=== PATIENT | female | born 1995 | race Hispanic/Latino ===

== ENCOUNTER 2018-01-29 11:46 | Emergency (ER) | payer BC ==
[2018-01-29 13:31] LABS: Urine Blood 3+ (NEG); Urine Glucose NEGATIVE (NEG); Urine Protein NEGATIVE (NEG); Urine Specific Gravity 1.025 (1.005-1.030)
--- NOTE | 2018-01-29 13:38 | ER ---
Nurse's Notes [facility] Name: Nenita Causey Age: 22 yrs Sex: Female : 1995 Arrival Date: 01/29/2018 Time: 11:51 Bed 11 Private MD: Diagnosis: Cellulitis of right upper limb-Forearm;Irritant contact dermatitis Presentation: 01/29 12:05 Presenting complaint: Patient states: i was doing yard work, January 17, i noticed small hj rash and started on the R arm and now its starting to spread all over my body; i applied Caladryl lotion to affected sites;. Transition of care: patient was not received from another setting of care. Onset of symptoms was January 29, 2018. Initial Sepsis Screen: Does the patient meet any 2 criteria? No. Patient's initial sepsis screen is negative. Does the patient have a suspected source of infection? No. Patient's initial sepsis screen is negative. Care prior to arrival: None. 12:05 Method Of Arrival: Ambulatory 12:05 Acuity: RACH 4 hj Triage Assessment: 12:07 General: Appears in no apparent distress. uncomfortable, Behavior is calm, cooperative, hj appropriate for age. Pain: Complains of pain in right arm Pain currently is 3 out of 10 on a pain scale. 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 - Social history:: Smoking status: Patient/guardian denies using tobacco, Patient/guardian denies using alcohol. Screenin:09 Abuse screen: Denies threats or abuse. Denies injuries from another. Nutritional hj screening: No deficits noted. Tuberculosis screening: No symptoms or risk factors identified. Fall Risk None identified. Assessment: 13:00 General: Appears in no apparent distress. Behavior is calm, cooperative. Pain: iw Complains of pain in right arm. Neuro: Level of Consciousness is awake, alert, obeys commands, Oriented to person, place, time. Respiratory: Respiratory effort is even, unlabored, Respiratory pattern is regular. Derm: Rash noted that is draining clear fluid, itchy, red, on palmar aspect of right forearm. Musculoskeletal: Range of motion: intact in all extremities. Vital Signs: 12:07 BP 111 / 73; Pulse 86; Resp 18; Temp 98.1(TE); Pulse Ox 99% on R/A; Weight 108.86 kg; hj Height 5 ft. 3 in. (160.02 cm); Pain 3/10; 12:07 Body Mass Index 42.51 (108.86 kg, 160.02 cm) ED Course: 11:51 Patient arrived in ED. mr 12:06 Triage completed. hj 12:07 Arm band placed on left wrist. hj 12:10 Patient has correct armband on for positive identification. Bed in low position. hj 12:11 Hector Jansen PA is PHCP. cp 12:11 Phan Neri MD is Attending Physician. cp 12:24 Roxy Rios, RN is Primary Nurse. iw 13:32 No provider procedures requiring assistance completed. Patient did not have IV access iw during this emergency room visit. Administered Medications: No medications were administered Outcome: 13:38 Discharge ordered by MD. cp 13:45 Discharged to home ambulatory, with family. iw 13:45 Condition: good 13:45 Discharge instructions given to patient, family, Instructed on discharge instructions, follow up and referral plans. medication usage, Demonstrated understanding of instructions, follow-up care, medications, Prescriptions given X 2. 13:46 Patient left the ED. la1 Signatures: Sharonda Hassan Roxy Rios, RONALD CARDENAS Pedrito Armstrong RN RN la1 Andrea Child RN RN Hector Jansen PA PA cp Corrections: (The following items were deleted from the chart) 12:09 12:07 Pulse 86bpm; Resp 18bpm; Pulse Ox 99% RA; Temp 98.1F Temporal; 108.86 kg; Height hj 5 ft. 3 in.; BMI: 42.5; Pain 3/10; hj
--- NOTE | 2018-01-29 13:39 | EDPHYS ---
Physician Documentation [facility] Name: Nenita Causey Age: 22 yrs Sex: Female : 1995 Arrival Date: 01/29/2018 Time: 11:51 Bed 11 Private MD: ED Physician Phan Neri HPI: 01/29 12:15 This 22 yrs old Female presents to ER via Ambulatory with complaints of Poison cp miriam. 12:15 Onset: The symptoms/episode began/occurred 01-17-2018, started after performing yard cp work. 12:15 Associated signs and symptoms: Pertinent positives: swelling, erythema, drainage from cp right forearm, Pertinent negatives: cough, fever, wheezing. Patient reports she has been using OTC calamine lotion w/o resolution. 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 - Social history:: Smoking status: Patient/guardian denies using tobacco, Patient/guardian denies using alcohol. ROS: 12:20 Constitutional: Negative for body aches, chills, fever, poor PO intake. cp 12:20 Eyes: Negative for injury, pain, redness, and discharge. cp 12:20 ENT: Negative for drainage from ear(s), ear pain, sore throat, difficulty swallowing, difficulty handling secretions. 12:20 Cardiovascular: Negative for chest pain, palpitations. 12:20 Respiratory: Negative for cough, shortness of breath, wheezing. 12:20 Abdomen/GI: Negative for abdominal pain, nausea, vomiting, and diarrhea. 12:20 Skin: Positive for cellulitis, rash, of the right forearm, diffusely. 12:20 All other systems are negative. Exam: 12:25 Constitutional: The patient appears in no acute distress, alert, awake, non-toxic, well cp developed, well nourished. 12:25 Head/Face: Normocephalic, atraumatic. cp 12:25 Eyes: Periorbital structures: appear normal, Conjunctiva: normal, no exudate, no injection, Sclera: no appreciated abnormality, Lids and lashes: appear normal, bilaterally. 12:25 ENT: External ear(s): are unremarkable, Nose: is normal, Mouth: Lips: moist, Oral mucosa: pink and intact, moist, Posterior pharynx: is normal, airway is patent, no erythema, no exudate. 12:25 Neck: ROM/movement: is normal, is supple, without pain, no range of motions limitations, no nuchal rigidity. 12:25 Chest/axilla: Palpation: is normal, no crepitus, no tenderness. 12:25 Cardiovascular: Rate: normal, Rhythm: regular. 12:25 Respiratory: the patient does not display signs of respiratory distress, Respirations: normal, no use of accessory muscles, no retractions, no splinting, no tachypnea, labored breathing, is not present, Breath sounds: are clear throughout, no decreased breath sounds, no stridor, no wheezing. 12:25 Abdomen/GI: Exam negative for discomfort, distension, guarding, Inspection: abdomen appears normal. 12:25 Skin: cellulitis, that is moderate, irregular, on the right forearm, noted serosanguinous drainage for excoriated skin wounds, skin warmth and erythema, consistent with contact dermatitis, and is diffusely located. Vital Signs: 12:07 BP 111 / 73; Pulse 86; Resp 18; Temp 98.1(TE); Pulse Ox 99% on R/A; Weight 108.86 kg; hj Height 5 ft. 3 in. (160.02 cm); Pain 3/10; 12:07 Body Mass Index 42.51 (108.86 kg, 160.02 cm) hj MDM: 12:23 Patient medically screened. cp 12:30 Differential diagnosis: cellulitis, abscess, contact dermatitis, eczema. cp 13:37 Data reviewed: vital signs, nurses notes, and as a result, I will discharge patient. cp 13:37 Counseling: I had a detailed discussion with the patient and/or guardian regarding: the cp historical points, exam findings, and any diagnostic results supporting the discharge/admit diagnosis, the need for outpatient follow up, a family practitioner, to return to the emergency department if symptoms worsen or persist or if there are any questions or concerns that arise at home. ED course: VSS. Discussed wound care. Recommend OTC oatmeal bar soap. Will discharge to home for continued monitoring. 01/29 13:24 Order name: Urine Dipstick--Ancillary (enter results); Complete Time: 13:37 iw 01/29 13:37 Interpretation: Normal except: UBLD 3+. cp 01/29 13:24 Order name: Urine --Ancillary (enter results); Complete Time: 13:37 iw 01/29 12:11 Order name: Urine Dipstick-Ancillary (obtain specimen); Complete Time: 13:23 cp 01/29 12:11 Order name: Urine Test (obtain specimen); Complete Time: 13:23 cp Administered Medications: No medications were administered Disposition: 16:52 Co-signature as Attending Physician, Phan Neri MD. rn Disposition: 01/29/18 13:38 Discharged to Home. Impression: Cellulitis of right upper limb - Forearm, Irritant contact dermatitis. - Condition is Stable. - Discharge Instructions: Cellulitis, Poison Miriam. - Prescriptions for Clindamycin HCl 300 mg Oral Capsule - take 1 capsule by ORAL route every 6 hours for 10 days; 40 capsule. Triamcinolone Acetonide 0.1 % Topical Ointment - apply 1 application by TOPICAL route every 12 hours As needed apply to areas of irritation except right forearm; 1 tube. - Medication Reconciliation Form, Thank You Letter, Antibiotic Education, Prescription Opioid Use form. - Follow up: Private Physician; When: 2 - 3 days; Reason: Wound Recheck. - Problem is new. - Symptoms are unchanged. Signatures: Dispatcher [employer] EDPhan Parry MD MD rn Attema, Lee, RN RN la1 Andrea Child RN RN hj Page, Corey, PA PA cp Corrections: (The following items were deleted from the chart) 13:40 13:38 01/29/2018 13:38 Discharged to Home. Impression: Cellulitis of right upper limb. cp Condition is Stable. Forms are Medication Reconciliation Form, Thank You Letter, Antibiotic Education, Prescription Opioid Use. Follow up: Private Physician; When: 2 - 3 days; Reason: Wound Recheck. Problem is new. Symptoms are unchanged. cp 13:46 13:40 01/29/2018 13:38 Discharged to Home. Impression: Cellulitis of right upper limb - la1 Forearm; Irritant contact dermatitis. Condition is Stable. Discharge Instructions: Cellulitis. Prescriptions for Clindamycin HCl 300 mg Oral Capsule - take 1 capsule by ORAL route every 6 hours for 10 days; 40 capsule, Triamcinolone Acetonide 0.1 % Topical Ointment - apply 1 application by TOPICAL route every 12 hours As needed apply to areas of irritation except right forearm; 1 tube. and Forms are Medication Reconciliation Form, Thank You Letter, Antibiotic Education, Prescription Opioid Use. Follow up: Private Physician; When: 2 - 3 days; Reason: Wound Recheck. Problem is new. Symptoms are unchanged. cp
== END 2018-01-29 13:46 | disposition home or self-care (01) ==
LOC: ER 11:46
DX: L03.113 Cellulitis of right upper limb (principal); Z88.0 Allergy status to penicillin
CPT/HCPCS: 81003; 81025; 99282

== ENCOUNTER 2021-09-05 16:47 | Emergency (ER) | payer BC ==
--- OUTSIDE RECORDS SUMMARY | 2021-09-05 16:51 | XMS REPORT | Continuity of Care Document ---
:1995 Author Organization [facility] t Address [address] [place] [address] Care Team Providers Name Role Phone Tony Kilaptrick DO Attending Clinician Lab, Fam Pob I Attending Clinician Unavailable Tia Finn PA-C Attending Clinician TIA FINN Attending Clinician Unavailable Yair Talbot MD Attending Clinician Katelyn EM Attending Clinician ANENE Attending Clinician Unavailable Doctor Unassigned, Name Attending Clinician Unavailable Payers Payer Name Policy Type Policy Number Effective Date Expiration Date S ource Problems Condition Condition Condition Status Onset Resolution Last Treating Co mments Source Name Details Category Date Date Treatment Clinician Date No known No known Disease Unive rs active active ity of problems problems [facility] Allergies, Adverse Reactions, Alerts Allergy Allergy Status Severity Reaction(s) Onset Inactive Treating Comm ents Source Name Type Date Date Clinician AMOXICIL DRUG Active Hives 2020-0 Univers ERIN INGREDI 3-10 ity of 00:00: [place] 00 Medical Branch Amoxicil Propensi Active Hives 2020-0 Univer s erin ty to 3-10 ity of adverse 00:00: [place] reaction 00 Medical s Branch NO KNOWN Drug Active Univers ALLERGIE Class ity of S [facility] Social History Social Habit Start Date Stop Date Quantity Comments Source History [facility] 2019-12-03 2019-12-03 3 University o f Alcohol Frequency 00:00:00 00:00:00 [place] [facility] ed[facility] History [facility] 2019-12-03 2019-12-03 1 University o f Alcohol Std 00:00:00 00:00:00 [place] [facility] Dr[facility] History [facility] 2019-12-03 2019-12-03 2 University o f Alcohol Binge 00:00:00 00:00:00 [place] [facility] Tobacco use and 2019-12-03 2019-12-03 Never used Universit y of exposure 00:00:00 00:00:00 [facility] Alcohol intake 2019-12-03 2019-12-03 Current drinker Unive rsity of 00:00:00 00:00:00 of alcohol [place] [facility] (finding) [facility] Sex Ass[birth year] Universit y of 00:00:00 00:00:00 [facility] Smoking Status Start Date Stop Date Source Unknown if ever smoked [facility]it y [facility] Never smoker [facility] Medications Ordered Filled Start Stop Current Ordering Indication Dosage Frequency Signature Comments Components Source Medication Medication Date Date Medication? Clinician (SIG) Name Name azelastine Yes [id number] 1{spray Use 1 Univers 137 mcg 4-06 } [place] in ity of (0.1 %) 00:00: each [place] nasal spray 00 nostril 2 Med ical (two) Branch times daily. Use in each nostril as directed azelastine 2019-0 Yes [id number] 1{spray Use 1 Univers 137 mcg 4-06 } [place] in ity of (0.1 %) 00:00: each [place] nasal spray 00 nostril 2 Med ical (two) Branch times daily. Use in each nostril as directed azelastine 2019-0 Yes [id number] 1{spray Use 1 Univers 137 mcg 4-06 } [place] in ity of (0.1 %) 00:00: each [place] nasal spray 00 nostril 2 Med ical (two) Branch times daily. Use in each nostril as directed montelukast 2020-0 Yes [id number] 10mg Take 1 Univers 10 mg 4-01 tablet by ity of tablet 00:00: mouth [place] 00 daily. [facility] Branch montelukast 2020-0 Yes [id number] 10mg Take 1 Univers 10 mg 4-01 tablet by ity of tablet 00:00: mouth [place] 00 daily. [facility] montelukast 2020-0 Yes [id number] 10mg Take 1 Univers 10 mg 4-01 tablet by ity of tablet 00:00: mouth [place] 00 daily. [facility] montelukast 2020-0 Yes [id number] 10mg Take 1 Univers 10 mg 4-01 tablet by ity of tablet 00:00: mouth [place] 00 daily. [facility] montelukast 2019-2019- No [id number] 10mg Take 1 Univers 10 mg 3-10 04-10 tablet by ity of tablet 00:00: 04:59 mouth [place] 00 :00 daily for Medical 30 days. Branch montelukast 2019-2019- No [id number] 10mg Take 1 Univers 10 mg 3-10 04-10 tablet by ity of tablet 00:00: 04:59 mouth [place] 00 :00 daily for Medical 30 days. Branch montelukast 2019-2019- No [id number] 10mg Take 1 Univers 10 mg 3-10 04-01 tablet by ity of tablet 00:00: 00:00 mouth [place] 00 :00 daily for Medical 30 days. Branch azelastine 2019-2019- No [id number] 1{spray Use 1 Univers 137 mcg 3-10 03-25 } [place] in ity of (0.1 %) 00:00: 04:59 each [place] nasal spray 00 :00 nostril 2 Med ical (two) Branch times daily for 14 days. Use in each nostril as directed azelastine 2019-2019- No [id number] 1{spray Use 1 Univers 137 mcg 3-10 03-25 } [place] in ity of (0.1 %) 00:00: 04:59 each [place] nasal spray 00 :00 nostril 2 Med ical (two) Branch times daily for 14 days. Use in each nostril as directed bromphenira 2019-2019- No [id number] 5mL Take 5 mL Univers mine-pseudo -12-13 by mouth 4 i ty of ephedrine-D 00:: :59 (four) [place] as M (BROMFED 00 :00 times Medical DM) 2-30-10 daily as Bran ch mg/5 mL needed for syrup Congestion /Allergies or Cough for up to 10 days. bacitracin- 2019-2019- No [id number] Apply to Univers polymyxin B -12-13 area(s) 2 it y of 500-10,000 00:00: 04:59 (two) [place] unit/gram 00 :00 times Medical topical daily for Branch ointment 10 days. bromphenira 2019-2019- No [id number] 5mL Take 5 mL Univers mine-pseudo 3-12-13 by mouth 4 i ty of ephedrine-D 00:00: 04:59 (four) [place] M (BROMFED 00 :00 times Medical DM) 2-30-10 daily as Bran ch mg/5 mL needed for syrup Congestion /Allergies or Cough for up to 10 days. bacitracin- 2020- No [id number] Apply to [facility] polymyxin B 12-02 area(s) 2 it y of 500-10,000 00:00: 04:59 (two) [place] unit/gram 00 :00 times Medical topical daily for Branch ointment 10 days. methylPREDN 2020- No [id number] Take by [facility] 4 12-02 mouth ity of mg tablets 00:00: 04:59 SEE-INSTRU [place] 00 :00 CTIONS for Medical 6 days. Branch follow package directions methylPREDN 2019-2019- No [id number] Take by [facility] 4 12-02 mouth ity of mg tablets 00:00: 04:59 SEE-INSTRU [place] 00 :00 CTIONS for Medical 6 days. Branch follow package directions Vital Signs Vital Name Observation Time Observation Value Comments Source Systolic blood 2019-12-03 18:48:00 137 mm[Hg] Univer sity of pressure [facility] Diastolic blood 2019-12-03 18:48:00 81 [facility]Hg[facility] 2019-12-03 18:48:00 83 /min [facility] Body temperature 2019-12-03 18:48:00 [facility].5 [facility] height 2019-12-03 18:48:00 160 cm [facility] Body weight 2019-12-03 18:48:00 112.038 kg [facility] BMI 2019-12-03 18:48:00 43.75 kg/m2 [facility] Oxygen saturation in 2019-12-03 18:48:00 98 /min [facility] Arterial blood by [facility] Pulse oximetry Branch Procedures Procedure Date / Time Performed Performing Clinician [facility] e ASSIGNMENT OF BENEFITS 2019-12-03 18:40:40 Doctor Unassigned, No [facility] Name Medical Branch Encounters Start End Encounter Admission Attending Care Care Encounter Source Date/Time Date/Time Type Type Clinicians Facility Department ID 2020-12-15 2020-12-15 Patient Finesse [facility] [id number] Univers 00:00:00 00:00:00 Outreach Aneudy PRIMARY [id number] i ty of [id number] [phone] [address] 2020-04-02 2020-04-02 Laboratory Lab, Adc Fam Pob I [facility] 1. [id number] Univers 13:01:01 13:21:01 Only Brooklynn Finn [facility] [id number] ity of [place] [id number] [place] as Professio [phone] In dical nal [address] [place] Office [facility] One 2020-04-02 2020-04-02 Outpatient [facility] [id number] Univers 13:00:00 13:00:00 ity of [facility] 2020-04-02 2020-04-02 Outpatient R BROOKLYNN FINN [facility] [id number] Univers 13:00:00 13:00:00 ity of [facility] 2020-03-19 2020-03-19 Outpatient R [facility] [id number] Univers 09:40:00 09:40:00 [id number] ity of [facility] 2020-03-19 2020-03-19 Outpatient R [facility] [id number] Univers 09:40:00 09:40:00 ity of [facility] 2019-12-30 2019-12-30 [facility] [id number] [id number] Univers 00:00:00 00:00:00 Wondiful A Health [id number] ity of [place] [id number] [place] as Professio [phone] In dical nal [address] [place] [address] Building One 2019-12-25 2019-12-25 Refill Dahiana [facility] [id number] Univers 00:00:00 00:00:00 Wondiful A [place] [id number] ity [id number] [place] Profess[place] [phone] [address] Building 2019-12-03 2019-12-03 Office Katelyn [facility] [id number] Univers 13:36:52 14:28:46 Visit Jenelle [facility] [id number] it y of [place] [id number] [place] Amanda [phone] [address] Office Building One 2019-12-03 2019-12-03 [facility] [id number] Univers 13:40:00 13:40:00 JENELLE vanegasy of [facility] 2019-12-03 2019-12-03 Orders Doctor CARINA [id number] Univers 00:00:00 00:00:00 Only Unassigned, COLLETTE [id number] ity of [place] [facility] [id number] [place] as [phone] [place] [address] Branch Results This patient has no known results.
[2021-09-05] MEDS ORDERED: FLUORESCEIN SODIUM 1 MG/WRAP ONE (19:35)
[2021-09-05] MEDS ORDERED: TETRACAINE HCL 0.5% 4ML OPTH ONE (19:35)
[2021-09-05] MEDS ORDERED: TOBRAMYCIN SULF 0.3% OPTH OINT ONE (19:51)
--- NOTE | 2021-09-05 20:01 | ER ---
Nurse's Notes [facility] Name: Nenita Causey Age: 25 yrs Sex: Female : 1995 Arrival Date: 09/05/2021 Time: 17:10 Bed 11 Private MD: Diagnosis: Unspecified acute conjunctivitis, left eye Presentation: 09/05 17:46 Chief complaint: Patient states: left eye irritation, thought she got dust in her eye iw from work, it was crusting up and now there is some pink bloody discharge, started 3-4 days ago. Coronavirus screen: At this time, the client does not indicate any symptoms associated with coronavirus-19. Ebola Screen: Patient negative for fever greater than or equal to 101.5 degrees Fahrenheit, and additional compatible Ebola Virus Disease symptoms Patient denies exposure to infectious person. Patient denies travel to an Ebola-affected area in the 21 days before illness onset. No symptoms or risks identified at this time. Initial Sepsis Screen: Does the patient meet any 2 criteria? No. Patient's initial sepsis screen is negative. Does the patient have a suspected source of infection? No. Patient's initial sepsis screen is negative. Risk Assessment: Do you want to hurt yourself or someone else? Patient reports no desire to harm self or others. Onset of symptoms was September 02, 2021. 17:46 Method Of Arrival: Ambulatory iw 17:46 Acuity: RACH 4 iw Historical: - Allergies: 17:47 Amoxicillin; iw 17:47 PENICILLINS; iw - Home Meds: 17:47 None [Active]; iw - PMHx: 17:47 None; iw - PSHx: 17:47 None; iw - Social history:: Smoking status: Patient denies any tobacco usage or history of. - Family history:: not pertinent. Screenin:09 Abuse screen: Denies threats or abuse. Nutritional screening: No deficits noted. bb Tuberculosis screening: No symptoms or risk factors identified. Fall Risk None identified. Sepsis Screening:. Assessment: 20:09 General: Appears in no apparent distress. Behavior is calm, cooperative. Pain: Denies bb pain. Neuro: Level of Consciousness is awake, alert, obeys commands, Oriented to person, place, time, situation. Cardiovascular: No deficits noted. Respiratory: Respiratory effort is even, unlabored, Respiratory pattern is regular. GI: No signs and/or symptoms were reported involving the gastrointestinal system. EENT: conjunctiva to left eye reddened with clear discharge. Derm: Skin is pink, warm \T\ dry. Musculoskeletal: Circulation, motion, and sensation intact. Vital Signs: 17:46 BP 135 / 86; Pulse 84; Resp 16; Temp 97.5; Pulse Ox 100% ; Weight 127.01 kg; Height 5 iw ft. 4 in. (162.56 cm); Pain 3/10; 17:46 Body Mass Index 48.06 (127.01 kg, 162.56 cm) iw Visual Acuity: 19:39 Left Eye Visual acuity 20/20, Pupil size 4 mm, ; Right Eye Visual acuity 20/20, Pupil bb size 4 mm, ; Both Eyes Visual acuity 20/20; With Lenses; ED Course: 17:10 Patient arrived in ED. iw 17:47 Triage completed. iw 17:48 Arm band placed on. iw 19:20 Hector Auguste MD is Attending Physician. [facility] 19:57 Cora Mohan RN is Primary Nurse. bb 20:00 Torres Wade MD is Referral Physician. jessica 20:09 Patient has correct armband on for positive identification. bb 20:09 No provider procedures requiring assistance completed. Patient did not have IV access bb during this emergency room visit. Administered Medications: 19:35 Drug: Tetracaine Drops 0.5 % 1 drops Route: Ophthalmic; Site: left eye; bb 20:11 Follow up: Response: No adverse reaction bb 19:57 Drug: Mktbp-Z-Gzmpx Strip 9 mg 1 units {Note: by Dr Auguste.} Route: Ophthalmic; Site: bb left eye; 20:11 Follow up: Response: No adverse reaction bb 19:57 Drug: Tetracaine Solution (0.5 %) 2 drops {Note: by Dr Auguste.} Route: Topical; Site: bb left eye; 20:11 Follow up: Response: No adverse reaction bb 19:57 Drug: Tobramycin Ointment (0.3 %) 1 application Route: Ophthalmic; Site: left eye; bb 20:10 Follow up: Response: No adverse reaction bb Outcome: 20:00 Discharge ordered by . jessica 20:09 Discharged to home ambulatory. bb 20:09 Condition: stable 20:09 Discharge instructions given to patient, Instructed on discharge instructions, follow up and referral plans. medication usage, Demonstrated understanding of instructions, follow-up care, medications, Prescriptions given X 1. 20:11 Patient left the ED. bb Signatures: Hector Auguste MD MD cha Ballard, Brenda RN RN Roxy Benitez RN RN iw Corrections: (The following items were deleted from the chart) 17:48 17:46 Pulse 84bpm; Resp 16bpm; Pulse Ox 100%; Temp 97.5F; 127.01 kg; Height 5 ft. 4 iw in.; BMI: 48.0; Pain 3/10; iw
--- NOTE | 2021-09-05 20:01 | EDPHYS ---
Physician Documentation [facility] Name: Nenita Causey Age: 25 yrs Sex: Female : 1995 Arrival Date: 09/05/2021 Time: 17:10 Bed 11 Private MD: ED Physician Hector Auguste HPI: 09/05 19:55 This 25 yrs old Female presents to ER via Ambulatory with complaints of jessica Drainage From Eye, Redness of Eye. 19:55 The patient sustained Unknown. to the left eye. Onset: The symptoms/episode jessica began/occurred 2 day(s) ago. Aggravated by closing eye, light. Associated signs and symptoms: Pertinent positives: None. Severity of symptoms: At their worst the symptoms were mild in the emergency department the symptoms are unchanged. Historical: - Allergies: 17:47 Amoxicillin; iw 17:47 PENICILLINS; iw - Home Meds: 17:47 None [Active]; iw - PMHx: 17:47 None; iw - PSHx: 17:47 None; iw - Social history:: Smoking status: Patient denies any tobacco usage or history of. - Family history:: not pertinent. ROS: 19:55 Constitutional: Negative for fever, chills, and weight loss, ENT: Negative for injury, jessica pain, and discharge, Neck: Negative for injury, pain, and swelling, Cardiovascular: Negative for chest pain, palpitations, and edema, Respiratory: Negative for shortness of breath, cough, wheezing, and pleuritic chest pain, Abdomen/GI: Negative for abdominal pain, nausea, vomiting, diarrhea, and constipation, Back: Negative for injury and pain, : Negative for injury, bleeding, discharge, and swelling, MS/Extremity: Negative for injury and deformity, Skin: Negative for injury, rash, and discoloration, Neuro: Negative for headache, weakness, numbness, tingling, and seizure. 19:55 Eyes: Positive for itching, matting, pain, redness, of the outer aspect of conjuctiva of left eye, iris of left eye and inner aspect of conjunctiva of left eye. Exam: 19:55 Constitutional: This is a well developed, well nourished patient who is awake, alert, jessica and in no acute distress. Head/Face: Normocephalic, atraumatic. ENT: Nares patent. No nasal discharge, no septal abnormalities noted. Tympanic membranes are normal and external auditory canals are clear. Oropharynx with no redness, swelling, or masses, exudates, or evidence of obstruction, uvula midline. Mucous membranes moist. Neck: Trachea midline, no thyromegaly or masses palpated, and no cervical lymphadenopathy. Supple, full range of motion without nuchal rigidity, or vertebral point tenderness. No Meningismus. Chest/axilla: Normal chest wall appearance and motion. Nontender with no deformity. No lesions are appreciated. Cardiovascular: Regular rate and rhythm with a normal S1 and S2. No gallops, murmurs, or rubs. Normal PMI, no JVD. No pulse deficits. Respiratory: Lungs have equal breath sounds bilaterally, clear to auscultation and percussion. No rales, rhonchi or wheezes noted. No increased work of breathing, no retractions or nasal flaring. Abdomen/GI: Soft, non-tender, with normal bowel sounds. No distension or tympany. No guarding or rebound. No evidence of tenderness throughout. Back: No spinal tenderness. No costovertebral tenderness. Full range of motion. Skin: Warm, dry with normal turgor. Normal color with no rashes, no lesions, and no evidence of cellulitis. MS/ Extremity: Pulses equal, no cyanosis. Neurovascular intact. Full, normal range of motion. Neuro: Awake and alert, GCS 15, oriented to person, place, time, and situation. Cranial nerves II-XII grossly intact. Motor strength 5/5 in all extremities. Sensory grossly intact. Cerebellar exam normal. Normal gait. Psych: Awake, alert, with orientation to person, place and time. Behavior, mood, and affect are within normal limits. 19:55 Eyes: Periorbital structures: appear normal, no acute changes, Pupils: no acute changes, equal, round, and reactive to light and accomodation, Extraocular movements: no acute changes, Conjunctiva: normal, no acute changes, Corneas: are normal, no acute changes, no evidence of abrasion, no foreign body, Sclera: injected. Vital Signs: 17:46 BP 135 / 86; Pulse 84; Resp 16; Temp 97.5; Pulse Ox 100% ; Weight 127.01 kg; Height 5 iw ft. 4 in. (162.56 cm); Pain 3/10; 17:46 Body Mass Index 48.06 (127.01 kg, 162.56 cm) iw Visual Acuity: 19:39 Left Eye Visual acuity 20/20, Pupil size 4 mm, ; Right Eye Visual acuity 20/20, Pupil bb size 4 mm, ; Both Eyes Visual acuity 20/20; With Lenses; MDM: 19:20 Patient medically screened. jessica 19:58 Differential diagnosis: Corneal abrasion of Corneal ulcer of Foreign body in Chemical jessica conjunctivitis in Allergic conjunctivitis in left eye. Infectious conjunctivitis in. Data reviewed: vital signs, nurses notes. Data interpreted: surveillance monitor: not applicable for this patient encounter. rate is 84 beats/min, Pulse oximetry: on room air is 100 %. Counseling: I had a detailed discussion with the patient and/or guardian regarding: the historical points, exam findings, and any diagnostic results supporting the discharge/admit diagnosis, the need for outpatient follow up, for definitive care, an opthalmologist. 09/05 19:33 Order name: Eye Tray; Complete Time: 19:35 [facility] 09/05 19:33 Order name: Fluoresene Opth strip; Complete Time: 19:35 [facility] 09/05 19:33 Order name: Visual Acuity; Complete Time: 19:57 jessica Administered Medications: 19:35 Drug: Tetracaine Drops 0.5 % 1 drops Route: Ophthalmic; Site: left eye; bb 20:11 Follow up: Response: No adverse reaction bb 19:57 Drug: Vxard-K-Mszbu Strip 9 mg 1 units {Note: by Dr Auguste.} Route: Ophthalmic; Site: bb left eye; 20:11 Follow up: Response: No adverse reaction bb 19:57 Drug: Tetracaine Solution (0.5 %) 2 drops {Note: by Dr Auguste.} Route: Topical; Site: bb left eye; 20:11 Follow up: Response: No adverse reaction bb 19:57 Drug: Tobramycin Ointment (0.3 %) 1 application Route: Ophthalmic; Site: left eye; bb 20:10 Follow up: Response: No adverse reaction bb Disposition Summary: 09/05/21 20:00 Discharge Ordered Location: Home jessica Problem: new jessica Symptoms: have improved jessica Condition: Stable jessica Diagnosis - Unspecified acute conjunctivitis, left eye jessica Followup: jessica - With: Torres Wade MD - When: Tomorrow - Reason: Recheck today's complaints, Re-evaluation by your physician Discharge Instructions: - Discharge Summary Sheet jessica - Bacterial Conjunctivitis, Adult jessica - How to Use Eye Drops and Eye Ointments jessica - Bacterial Conjunctivitis, Adult, [id number] jessica Forms: - Medication Reconciliation Form jessica - Thank You Letter jessica - Antibiotic Education jessica - Prescription Opioid Use jessica Prescriptions: - Tobrex 0.3 % Ophthalmic ointment - apply 1 inch ribbon by OPHTHALMIC route 4 times per day; 3.5 gram; Refills: 0, jessica Product Selection Permitted Signatures: Hector Auguste MD MD cha Ballard, Brenda, RN RN Roxy Benitez RN RN iw
[2021-09-05 20:22] VITALS: BP 135/86; TEMP 97.5; O2SAT 100
== END 2021-09-05 20:11 | disposition home or self-care (01) ==
LOC: ER 16:47
DX: H10.32 Unspecified acute conjunctivitis, left eye (principal); Z88.0 Allergy status to penicillin; Z88.1 Allergy status to other antibiotic agents
CPT/HCPCS: 99283

== ENCOUNTER 2021-12-04 04:47 | Emergency (ER) | payer BC, SELFPAY ==
--- OUTSIDE RECORDS SUMMARY | 2021-12-04 04:50 | XMS REPORT | Continuity of Care Document ---
:1995 Author Organization [facility] t Address [address] [place] [address] [address]. [address] [place] [address] Care Team Providers Name Role Phone Tony Kilpatrick DO Attending Clinician Lab, Fam Pob I Attending Clinician Unavailable Tia Finn PA-C Attending Clinician TIA FINN Attending Clinician Unavailable Yair Talbot MD Attending Clinician Anekateryna BRAKE LINING DRILLER Attending Clinician ANENE Attending Clinician Unavailable Doctor Unassigned, Name Attending Clinician Unavailable Payers Payer Name Policy Type Policy Number Effective Date Expiration Date S ource Problems Condition Condition Condition Status Onset Resolution Last Treating Co mments Source Name Details Category Date Date Treatment Clinician Date No known No known Disease Unive rs active active ity of problems problems [facility] Allergies, Adverse Reactions, Alerts Allergy Allergy Status [...] Active Univers ALLERGIE Class ity of S [facility] Social History Social Habit Start Date Stop Date Quantity Comments Source History [facility] 2019-12-03 2019-12-03 3 University o f Alcohol Frequency 00:00:00 00:00:00 [place] [facility] History [facility] 2019-12-03 2019-12-03 1 University o f Alcohol Std 00:00:00 00:00:00 [facility] History [facility] 2019-12-03 2019-12-03 2 University o f Alcohol Binge 00:00:00 00:00:00 [facility] Tobacco use and 2019-12-03 2019-12-03 Never used Universit y of exposure 00:00:00 00:00:00 [facility] Alcohol intake 2019-12-03 2019-12-03 Current drinker Unive rsity of 00:00:00 00:00:00 of alcohol [facility] (finding) [facility] Sex Assigned [birth year] Universit y of 00:00:00 00:00:00 [facility] Smoking Status Start Date Stop Date Source Unknown if ever smoked [facility]it [facility] Never smoker [facility] Branch Medications Ordered Filled Start Stop Current Ordering Indication Dosage Frequency Signature Comments Components Source Medication Medication Date Date Medication? Clinician (SIG) Name Name azelastine 2020- Yes [id number] 1{spray Use 1 Univers 137 mcg 4-06 } [place] in ity of (0.1 %) 00:00: each [place] nasal spray 00 nostril 2 Med ical (two) Branch times daily. Use in each nostril as directed azelastine 2019-0 Yes [id number] 1{spray Use 1 Univers 137 mcg 4-06 } [place] in ity of (0.1 %) 00:00: each [place] nasal spray 00 nostril 2 Med ical (two) Branch times daily. Use in each nostril as directed azelastine 2019-0 Yes [id number] 1{spray Use 1 Univers 137 mcg 4-06 } [place] in ity of (0.1 %) 00:00: each [place] nasal spray 00 nostril 2 Med ical (two) Branch times daily. Use in each nostril as directed montelukast 2020-0 Yes [id number] 10mg Take 1 Univers 10 mg 4-01 tablet by ity of tablet 00:00: mouth [place] 00 daily. Medical Branch montelukast 2020-0 Yes [id number] 10mg Take 1 Univers 10 mg 4-01 tablet by ity of tablet 00:00: mouth [place] 00 daily. Medical Branch montelukast 2020-0 Yes [id number] 10mg Take 1 Univers 10 mg 4-01 tablet by ity of tablet 00:00: mouth [place] 00 daily. Medical Branch montelukast 2020-0 Yes [id number] 10mg Take 1 Univers 10 mg 4-01 tablet by ity of tablet 00:00: mouth [place] 00 daily. Medical Branch montelukast 2019-2019- No [id number] 10mg Take 1 Univers 10 mg 3-10 04-10 tablet by ity of tablet 00:00: 04:59 mouth [place] 00 :00 daily for Medical 30 days. Branch montelukast 2019-2019- No [id number] 10mg Take 1 Univers 10 mg 3-10 04-10 tablet by ity of tablet 00:00: 04:59 mouth [place] 00 :00 daily for Medical 30 days. Branch montelukast 2019-2019- No [id number] 10mg Take 1 Univers 10 mg 3-10 04-01 tablet by ity of tablet 00:00: 00:00 mouth [place] 00 :00 daily for Medical 30 days. Branch azelastine 2019-2019- No [id number] 1{spray Use 1 Univers 137 mcg 3-10 03-25 } [place] in ity of (0.1 %) 00:00: 04:59 each [place] nasal spray 00 :00 nostril 2 Med ical (two) Branch times daily for 14 days. Use in each nostril as directed azelastine 2019-2019- No [id number] 1{spray Use 1 Univers 137 mcg 3-10 03-25 } [place] in ity of (0.1 %) 00:00: 04:59 each [place] nasal spray 00 :00 nostril 2 Med ical (two) Branch times daily for 14 days. Use in each nostril as directed bromphenira 2019-2019- No [id number] 5mL Take 5 mL Univers mine-pseudo -10 12-13 by mouth 4 i ty of ephedrine-D 00:00: 04:59 (four) [place] as M (BROMFED 00 :00 times Medical DM) 2-30-10 daily as Bran ch mg/5 mL needed for syrup Congestion /Allergies or Cough for up to 10 days. bacitracin- 2019-2019- No [id number] Apply to Univers polymyxin B 3-10 12-13 area(s) 2 it y of 500-10,000 00:00: 04:59 (two) [place] unit/gram 00 :00 times Medical topical daily for Branch ointment 10 days. bromphenira 2019-2019- No [id number] 5mL Take 5 mL Univers mine-pseudo 3-10 03-21 by mouth 4 i ty of ephedrine-D 00:00: 04:59 (four) [place] M (BROMFED 00 :00 times Medical DM) 230-10 daily as Bran ch mg/5 mL needed for syrup Congestion /Allergies or Cough for up to 10 days. bacitracin- 2019- 2020- No [id number] Apply to [facility] polymyxin B 12-02 area(s) 2 it y of 500-10,000 00:00: 04:59 (two) [place] unit/gram 00 :00 times Medical topical daily for Branch ointment 10 days. methylPREDN 2019-2019- No [id number] Take by [facility] ISolone 4 12-02 mouth ity of mg tablets 00:00: 04:59 SEE-INSTRU [place] 00 :00 CTIONS for Medical 6 days. Branch follow package directions methylPREDN 2019- 2020- No [id number] Take by [facility] ISolPlaycez 4 12-02 mouth ity of mg tablets 00:00: 04:59 SEE-INSTRU [place] 00 :00 CTIONS for Medical 6 days. Branch follow package directions Vital Signs Vital Name Observation Time Observation Value Comments Source Systolic blood 2019-12-03 18:48:00 137 mm[Hg] Univer sity pressure [facility] Diastolic blood 2019-12-03 18:48:00 81 mm[Hg] Unive [facility] Heart rate 2019-12-03 18:48:00 83 /min [facility] Body temperature 2019-12-03 18:48:00 36.5 [facility] height 2019-12-03 18:48:00 160 cm [facility] Body weight 2019-12-03 18:48:00 112.038 kg [facility] BMI 2019-12-03 18:48:00 43.75 kg/m2 [facility] Oxygen saturation in 2019-12-03 18:48:00 98 /min [facility] Arterial blood by [facility] Pulse oximetry Branch Procedures Procedure Date / Time Performed Performing Clinician Sesar e ASSIGNMENT OF BENEFITS 2019-12-03 18:40:40 Doctor Unassigned, No [facility] Name Medical Branch Encounters Start End Encounter Admission Attending Care Care Encounter Source Date/Time Date/Time Type Type Clinicians Facility Department ID 2020-12-15 2020-12-15 Patient [place] [facility] [id number] Univers 00:00:00 00:00:00 Outreach A[place]udy PRIMARY [id number] i ty of [id number] [id number] [address] 2020-04-02 2020-04-02 Laboratory Lab, Adc Fam Pob I [facility] [id number]. [id number] Univers 13:01:01 13:21:01 Only Brooklynn Finn [facility] [id number] ity of [place] [id number] [place] as Professio [phone] Hi dicaz nal [address] 2020-04-02 2020-04-02 Outpatient [facility] [id number] Univers 13:00:00 13:00:00 ity of [facility] 2020-04-02 2020-04-02 Outpatient R BROOKLYNN FINN [facility] [id number] Univers 13:00:00 13:00:00 ity of [facility] 2020-03-19 2020-03-19 Outpatient R [facility] [id number] Univers 09:40:00 09:40:00 [id number] ity of [facility] 2020-03-19 2020-03-19 Outpatient R [facility] [id number] Univers 09:40:00 09:40:00 ity of [facility] 2019-12-30 2019-12-30 Telephone [place] [facility] [id number] Univers 00:00:00 00:00:00 Wondiful A Health [id number] ity of [place] [id number] [place] Professio [phone] Hi dical nal [address] 2019-12-25 2019-12-25 Refill [place] [facility] [id number] Univers 00:00:00 00:00:00 Wondiful A [place] [id number] ity of [place] [id number] [place] [phone] Hi dical nal [address] 2019-12-03 2019-12-03 Office Katelyn [facility] [id number] Univers 13:36:52 14:28:46 Visit Jenelle Peters [id number] it y of [place] [id number] [place] Professio [id number] [address] 2019-12-03 2019-12-03 Outpatient R KATELYN [facility] [id number] Univers 13:40:00 13:40:00 JENELLE vanegasy of [facility] 2019-12-03 2019-12-03 Orders Doctor CARINA [id number] Univers 00:00:00 00:00:00 Only Unassigned, COLLETTE [id number] ity of [place] [facility] [id number] [place] [phone] [place] [address] Branch Results This patient has no known results.
--- NOTE | 2021-12-04 05:15 | ER ---
Nurse's Notes [facility] Name: Nenita Causey Age: 26 yrs Sex: Female : 1995 Arrival Date: 12/04/2021 Time: 04:51 Bed 7 Private MD: Diagnosis: Otitis media, unspecified, left ear;Acute maxillary sinusitis Presentation: 12/04 05:10 Chief complaint: Patient states: patient is complaining of congestion, nasal drainage st1 and bilateral ear pain and pressure x 2 weeks. Coronavirus screen: Vaccine status: Patient reports being unvaccinated. Ebola Screen: No symptoms or risks identified at this time. Initial Sepsis Screen: Does the patient meet any 2 criteria? No. Patient's initial sepsis screen is negative. Does the patient have a suspected source of infection? No. Patient's initial sepsis screen is negative. Risk Assessment: Do you want to hurt yourself or someone else? Patient reports no desire to harm self or others. Onset of symptoms. 05:10 Method Of Arrival: Ambulatory st1 05:10 Acuity: RACH 4 st1 Triage Assessment: 05:12 General: Appears distressed, uncomfortable, obese, well groomed, Behavior is calm, st1 cooperative. Pain: Complains of pain in Bilateral ears. EENT: Reports pain in left ear and right ear. 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 Flu vaccine is not up to date. - Social history:: Smoking status: Patient denies any tobacco usage or history of. Patient/guardian denies using alcohol, street drugs, IV drugs, tobacco products. - Family history:: not pertinent. - Hospitalizations: : No recent hospitalization is reported. Screenin:14 Abuse screen: Denies threats or abuse. Nutritional screening: No deficits noted. st1 Tuberculosis screening: No symptoms or risk factors identified. Fall Risk None identified. No fall in past 12 months (0 pts). No secondary diagnosis (0 pts). No IV (0 pts). Ambulatory Aid- None/Bed Rest/Nurse Assist (0 pts). Gait- Normal/Bed Rest/Wheelchair (0 pts) Mental Status- Oriented to own ability (0 pts). Total Rubio Fall Scale indicates No Risk (0-24 pts). Assessment: 05:13 Reassessment: Patient appears in no apparent distress at this time. please see triage st1 assessment. Vital Signs: 05:13 BP 131 / 72; Pulse 98; Resp 18; Temp 98(O); Pulse Ox 97% on R/A; Weight 127.01 kg; ke1 Height 5 ft. 3 in. (160.02 cm); Pain 7/10; 05:13 Body Mass Index 49.60 (127.01 kg, 160.02 cm) ke1 ED Course: 04:51 Patient arrived in ED. 05:00 Shailesh Kenney, RN is Primary Nurse. as6 05:00 Phan Neri MD is Attending Physician. rn 05:12 Triage completed. st1 05:12 Arm band placed on. st1 05:14 Patient has correct armband on for positive identification. Bed in low position. Call st1 light in reach. Side rails up X 1. 05:29 No provider procedures requiring assistance completed. Patient did not have IV access ke1 during this emergency room visit. Administered Medications: 05:19 Drug: SOLU-Medrol (methylPREDNISolone sodium succinate) 125 mg Route: IM; Site: right as6 deltoid; 05:30 Follow up: Response: Medication administered at discharge. ke1 05:20 Drug: Motrin (ibuprofen) 800 mg Route: PO; as6 05:30 Follow up: Response: Medication administered at discharge. ke1 Outcome: 05:15 Discharge ordered by . rn 05:29 Discharged to home ambulatory. ke1 05:29 Condition: stable 05:29 Discharge instructions given to patient. 05:31 Patient left the ED. ke1 Signatures: Phan Neri MD MD rn Marsh, Wendy Shailesh Kenney RN RN as6 Jenny Carvalho RN RN st1 Jaguar Figueroa RN RN ke1
--- NOTE | 2021-12-04 05:15 | EDPHYS ---
Physician Documentation [facility] Name: Nenita Causey Age: 26 yrs Sex: Female : 1995 Arrival Date: 12/04/2021 Time: 04:51 Bed 7 Private MD: ED Physician Phan Neri HPI: 12/04 05:10 This 26 yrs old Female presents to ER via Unassigned with complaints of Ear rn Pain. 05:10 The patient presents with pain. The complaints affect the left ear. Onset: The rn symptoms/episode began/occurred last night. Modifying factors: The symptoms are alleviated by nothing, the symptoms are aggravated by nothing. Severity of symptoms: At their worst the symptoms were moderate in the emergency department the symptoms are unchanged. The patient has experienced similar episodes in the past. The patient has not recently seen a physician. Pt reports 2 weeks of sinus problems with congestion/sore throat/cough. Has chronic allergies and sinus problems so took over the counter medication and waited to see improvement, which never came. Used neti pot last night and had increased sinus and left ear pain. No fever. No trauma. . 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 Flu vaccine is not up to date. - Social history:: Smoking status: Patient denies any tobacco usage or history of. Patient/guardian denies using alcohol, street drugs, IV drugs, tobacco products. - Family history:: not pertinent. - Hospitalizations: : No recent hospitalization is reported. ROS: 05:10 Constitutional: Negative for fever, chills, and weight loss, Eyes: + clear drainage rn from eyes ENT: + nasal congestion and sore throat Cardiovascular: Negative for chest pain, palpitations, and edema, Respiratory: + cough, negative for sob Abdomen/GI: Negative for abdominal pain, nausea, vomiting, diarrhea, and constipation, MS/Extremity: Negative for injury and deformity, Skin: Negative for injury, rash, and discoloration, Neuro: Negative for headache, weakness, numbness, tingling, and seizure. 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 Head/Face: Normocephalic, atraumatic. Eyes: + clear drainage both eyes with mild left lower eyelid swelling ENT: MMM, + clear nasal drainage, no stridor, no tonsillar hypertrophy or exudate Neck: Trachea midline, no thyromegaly or masses palpated, and no cervical lymphadenopathy. Supple, full range of motion without nuchal rigidity, or vertebral point tenderness. No Meningismus. Cardiovascular: Regular rate and rhythm. No pulse deficits. Respiratory: Speaking full sentences, unlabored. No increased work of breathing, no retractions or nasal flaring. Neuro: Awake and alert, GCS 15, oriented to person, place, time, and situation. Cranial nerves II-XII grossly intact. Motor strength 5/5 in all extremities. Sensory grossly intact. Cerebellar exam normal. Normal gait. Vital Signs: 05:13 BP 131 / 72; Pulse 98; Resp 18; Temp 98(O); Pulse Ox 97% on R/A; Weight 127.01 kg; ke1 Height 5 ft. 3 in. (160.02 cm); Pain 7/10; 05:13 Body Mass Index 49.60 (127.01 kg, 160.02 cm) ke1 MDM: 05:00 Patient medically screened. rn 05:12 Differential diagnosis: otitis media, acute otalgia, serotympanum, sinusitis, rn pharyngitis. Data reviewed: vital signs, nurses notes, old medical records, and as a result, I will discharge patient. Counseling: I had a detailed discussion with the patient and/or guardian regarding: the historical points, exam findings, and any diagnostic results supporting the discharge/admit diagnosis, the need for outpatient follow up, to return to the emergency department if symptoms worsen or persist or if there are any questions or concerns that arise at home. Special discussion: I discussed with the patient/guardian in detail that at this point there is no indication for admission to the hospital. It is understood, however, that if the symptoms persist or worsen the patient needs to return immediately for re-evaluation. Administered Medications: 05:19 Drug: SOLU-Medrol (methylPREDNISolone sodium succinate) 125 mg Route: IM; Site: right as6 deltoid; 05:30 Follow up: Response: Medication administered at discharge. ke1 05:20 Drug: Motrin (ibuprofen) 800 mg Route: PO; as6 05:30 Follow up: Response: Medication administered at discharge. ke1 Disposition Summary: 12/04/21 05:15 Discharge Ordered Location: Home rn Problem: new rn Symptoms: are unchanged rn Condition: Stable rn Diagnosis - Otitis media, unspecified, left ear rn - Acute maxillary sinusitis rn Followup: rn - With: Private Physician - When: As needed - Reason: Recheck today's complaints, Re-evaluation by your physician Discharge Instructions: - Discharge Summary Sheet rn - Otitis Media, Adult rn - Sinusitis, Adult rn Forms: - Medication Reconciliation Form rn - Thank You Letter rn - Antibiotic rn urology - Prescription Opioid Use rn Prescriptions: - Zithromax Z-Gino 250 mg Oral Tablet - take 1 tablet by ORAL route as directed for 5 days Day 1 - take two (2) tablets rn one time. Day 2, 3, 4 , 5 take one (1) tablet once daily.; 6 tablet; Refills: 0, Product Selection Permitted Signatures: Phan Neri MD MD rn Slawson, Ashby RN RN as6 Jenny Carvalho RN RN st1 Jaguar Figueroa RN ke1 Corrections: (The following items were deleted from the chart) 05:12 05:10 Constitutional: Negative for fever, chills, and weight loss, rn rn
[2021-12-04] MEDS ORDERED: METHYLPREDNISOLONE 125 MG INJ ONE (05:17)
[2021-12-04] MEDS ORDERED: IBUPROFEN 400 MG TAB ONE (05:18)
[2021-12-04 05:36] VITALS: BP 131/72; TEMP 98; O2SAT 97
== END 2021-12-04 05:31 | disposition home or self-care (01) ==
LOC: ER 04:47
DX: H66.92 Otitis media, unspecified, left ear (principal); J01.00 Acute maxillary sinusitis, unspecified; Z88.0 Allergy status to penicillin; Z88.1 Allergy status to other antibiotic agents
CPT/HCPCS: 96372; 99283; J2930

== ENCOUNTER 2023-08-29 22:44 | Emergency (ER) | payer BC, OTHER ==
--- OUTSIDE RECORDS SUMMARY | 2023-08-29 22:48 | XMS REPORT | Continuity of Care Document ---
:1995 Author Organization [facility] t Address [address] [place] [address] Care Team Providers Name Role Phone Pcp, Patient Does Not Have A Primary Care Physician [phone] Elier CARDENAS, Avery Mcduffie Attending Clinician Unavailable KIERA SHEPARD Attending Clinician Unavailable Only, Ang Db Test Attending Clinician Unavailable Drea MEMBER SERVICE SPECIALISTKiera Daniels Attending Clinician Aneudy Kilpatrick DO Attending Clinician Doctor Unassigned, [place] Attending Clinician Unavailable Lab, Adc Fam Pob I Attending Clinician Unavailable Brooklynn Finn PA-C Attending Clinician BROOKLYNN FINN Attending Clinician Unavailable Dahiana WHITTINGTON, Ion Mazariegos Attending Clinician Jenelle Garcia Attending Clinician JENELLE MARK Attending Clinician Unavailable Payers Payer Name Policy Type Policy Number Effective Date Expiration Date S ource Problems Condition Condition Condition Status Onset Resolution Last Treating Co mments Source Name Details Category Date Date Treatment Clinician Date No known No known Disease Unive rs active active ity of problems problems [facility] [place] [facility] Allergies, Adverse Reactions, Alerts Allergy Allergy Status Severity Reaction(s) Onset Inactive Treating Comm ents Source Name Type Date Date Clinician Amoxicil Propensi Active Hives 2020-0 Univer s erin ty to 3-10 ity of adverse 00:00: [place] reaction 00 Medical s Branch AMOXICIL DRUG Active Hives 2020-0 Univers ERIN INGREDI 3-10 ity of 00:00: [place] 00 Medical Branch Social History Social Habit Start Date Stop Date Quantity Comments Source History [facility] o f Alcohol Comment [place] [facility] ical [facility] Sexual orientation Univer sity [place] [facility] [place] Exposure to 2022-02-13 2022-02-23 Not sure University of SARS-CoV-2 (event) 00:00:00 19:52:00 [place] [facility] History SDOH 2019-12-03 2019-12-03 3 University o f Alcohol Frequency 00:00:00 00:00:00 [place] M edical Branch History SDOH 2019-12-03 2019-12-03 1 University o f Alcohol Std Drinks 00:00:00 00:00:00 [place] [facility] History SDOH 2019-12-03 2019-12-03 2 University o f Alcohol Binge 00:00:00 00:00:00 [place] Medic al [facility] Tobacco use and 2019-12-03 2019-12-03 Smokeless Universit y of exposure 00:00:00 00:00:00 tobacco non-user [facility] dical Branch Alcohol intake 2019-12-03 2019-12-03 Current drinker Unive rsity of 00:00:00 00:00:00 of alcohol [place] [facility] (finding) Branch History of Social 2019-12-03 2019-12-03 Univers ity of function 00:00:00 00:00:00 [facility] [place] [facility] Sex Assigned [birth year] Universit y of 00:00:00 00:00:00 [facility] [place] [facility] Smoking Status Start Date Stop Date Source Never smoked tobacco [facility] Medications Ordered Filled Start Stop Current Ordering Indication Dosage Frequency Signature Comments Components Source Medication Medication Date Date Medication? Clinician (SIG) Name Name azelastine Yes [id number] 1{spray Use 1 Univers 137 mcg 4-06 } [place] in ity of (0.1 %) 00:00: each [place] nasal spray 00 nostril 2 Med ical (two) Branch times daily. Use in each nostril as directed azelastine Yes [id number] 1{spray Use 1 Univers 137 mcg 4-06 } [place] in ity of (0.1 %) 00:00: each [place] nasal spray 00 nostril 2 Med ical (two) Branch times daily. Use in each nostril as directed azelastine Yes [id number] 1{spray Use 1 Univers 137 mcg 4-06 } [place] in ity of (0.1 %) 00:00: each [place] nasal spray 00 nostril 2 Med ical (two) Branch times daily. Use in each nostril as directed montelukast 2019-0 Yes [id number] 10mg Take 1 Univers 10 mg 4-01 tablet by ity of tablet 00:00: mouth [place] 00 daily. [facility] montelukast 2019- Yes [id number] 10mg Take 1 Univers 10 mg 4-01 tablet by ity of tablet 00:00: mouth [place] 00 daily. [facility] montelukast 2019-0 Yes [id number] 10mg Take 1 Univers 10 mg 4-01 tablet by ity of tablet 00:00: mouth [place] 00 daily. [facility] Procedures This patient has no known procedures. Encounters Start End Encounter Admission Attending Care Care Encounter Source Date/Time Date/Time Type Type Clinicians Facility Department ID 2022-02-24 2022-02-24 Telephone CARINA Thapa [id number] Univers 00:00:00 00:00:00 Avery [place] [id number] ity [facility] [id number] [place] as [phone] [address] 2022-02-23 2022-02-23 Outpatient R DREA [facility] [id number] Univers 19:45:00 20:08:05 [facility] 2022-02-23 2022-02-23 Laboratory Only, Ang Db Test [facility] [id number] Univers 19:45:00 20:00:00 Only Drea [id number] [id number] [place] as ANNA?BLEA [phone] [address] MEDICAL OFFICE BUILDING 2022-02-23 2022-02-23 Outpatient Anu SHEPARD [facility] [id number] Univers 19:45:00 19:45:00 [facility] 2020-12-15 2020-12-15 Patient Finesse [facility] [id number] Univers 00:00:00 00:00:00 Outreach Aneudy PRIMARY [id number] i ty [address] [facility] [id number] [place] [phone] In dic[address] 2020-04-04 2020-04-04 Patient Doctor [facility] [id number] Univers 00:00:00 00:00:00 Secure Msg Unassigned, [place] [id number] ity of [place] [facility] [id number] [place] [phone] In dical AND [address] [facility] E CLINIC 2020-04-02 2020-04-02 Laboratory Lab, Adc Fam Pob I [facility] [id number] Univers 13:01:01 13:21:01 Only Brooklynn Finn [facility] [id number] ity of [place] [id number] [place] as Professio [phone] In dical nal 044 [place] Office [facility] 2020-04-02 2020-04-02 Outpatient R BROOKLYNN FINN [facility] [id number] Univers 13:00:00 13:00:00 ity of [facility] [place] [facility] 2020-03-19 2020-03-19 Outpatient R [facility] [id number] Univers 09:40:00 09:40:00 ity of [facility] [place] [facility] 2019-12-30 2019-12-30 Telephone Dahiana [facility] [id number] Univers 00:00:00 00:00:00 Wondiful A Health [id number] ity of [place] [id number] [place] as Professio [phone] In dical nal 044 [facility] 2019-12-25 2019-12-25 Refill Dahiana [facility] [id number] Univers 00:00:00 00:00:00 Wondiful A [place] [id number] ity of [place] [id number] Profess[place] [phone] In dical nal 044 [facility] 2019-12-03 2019-12-03 Office Katelyn [facility] [id number] Univers 13:36:52 14:28:46 Visit [facility] [id number] it y of [place] [id number] [place] as Amanda [phone] [facility] [address] 2019-12-03 2019-12-03 Outpatient R KATELYN [facility] [id number] Univers 13:40:00 13:40:00 JENELLE butler of [facility] [place] [facility] 2019-12-03 2019-12-03 Orders Doctor CARINA [id number] Univers 00:00:00 00:00:00 Only Unassigned, COLLETTE [id number] ity of [place] [facility] [id number] [place] as [phone] [place] [address] Branch Results This patient has no known results.
[2023-08-29] MEDS ORDERED: IPRATROPIUM BROM 0.5MG/2.5ML ONE (23:23)
[2023-08-29] MEDS ORDERED: ALBUTEROL 2.5 MG/3 ML NEB SOL ONE (23:23)
--- NOTE | 2023-08-30 00:57 | EDPHYS ---
Physician Documentation [facility] Name: Nenita Causey Age: 27 yrs Sex: Female : 1995 Arrival Date: 08/29/2023 Time: 22:44 Bed 16 Private MD: ED Physician Rafa Bain HPI: 08/29 23:42 This 27 yrs old Female presents to ER via Ambulatory with complaints of Cough, kb Congestion, Fever. 23:42 Patient is a 27-year-old female with no medical history who presents for cough, kb congestion, body aches, fever, lost voice that started 6 days ago. Report sore throat with cough. Denies chest pain or shortness of breath.. 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 - Social history:: Smoking status: Patient denies any tobacco usage or history of. ROS: 23:42 Abdomen/GI: Negative for abdominal pain, nausea, vomiting, diarrhea, and constipation, kb 23:42 Constitutional: Positive for fever, 23:42 ENT: Positive for rhinorrhea, sinus congestion, 23:42 Respiratory: Positive for cough, 23:42 All other systems are negative, Exam: 23:43 Constitutional: This is a well developed, well nourished patient who is awake, alert, kb and in no acute distress. Head/Face: Normocephalic, atraumatic. ENT: Moist Mucous membranes Cardiovascular: Regular rate Respiratory: Respirations even and unlabored. No increased work of breathing. Talking in full sentences Abdomen/GI: Soft, non-tender. No distention Skin: Warm, dry with normal turgor. Normal color. MS/ Extremity: Pulses equal, no cyanosis. Neurovascular intact. Full, normal range of motion. Neuro: Awake and alert, GCS 15, oriented to person, place, time, and situation. Moves all extremities. Normal gait. 23:43 ENT: Voice: is hoarse, Vital Signs: 22:56 Pulse 89; Resp 18; Temp 97.1; Pulse Ox 97% ; Weight 127.01 kg; Height 5 ft. 3 in. ; cm10 Pain 4/10; 22:59 BP 136 / 80; cm10 23:23 BP 153 / 103; Pulse 89; Resp 22; Pulse Ox 99% ; la4 08/30 01:28 BP 149 / 87; Pulse 88; Resp 18; Temp 98.7(O); Pulse Ox 96% on R/A; la4 08/29 22:56 Body Mass Index 49.60 (127.01 kg, 160.02 cm) cm10 08/29 22:56 Pain Scale: Adult cm10 [place] Coma Score: 08/29 23:23 Eye Response: spontaneous(4). Motor Response: obeys commands(6). Verbal Response: la4 oriented(5). Total: 15. 12 01:28 Eye Response: spontaneous(4). Motor Response: obeys commands(6). Verbal Response: la4 oriented(5). Total: 15. MDM: 08/29 22:53 Patient medically screened. kb 23:43 Differential Diagnosis: Other flu, covid, uri, strep, pneumonia. Data reviewed: vital kb signs, nurses notes. Test considered but Not performed: X-ray: Chest x-ray considered but lungs clear bilaterally, oxygen saturation 99% on room air and respirations even and unlabored. 08/30 00:56 Counseling: I had a detailed discussion with the patient and/or guardian regarding the kb historical points, exam findings, and any diagnostic results supporting the discharge/admit diagnosis, lab results, the need for outpatient follow up, a family practitioner, to return to the emergency department if symptoms worsen or persist or if there are any questions or concerns that arise at home. 08/29 22:58 Order name: Flu; Complete Time: 01:00 kb 08/29 22:58 Order name: COVID-19 SARS RT PCR; Complete Time: 00:46 kb 08/29 22:58 Order name: Strep; Complete Time: 01:00 kb 08/30 01:00 Order name: Throat Culture EDMS Administered Medications: 08/29 23:18 Drug: Albuterol Inhalation 2.5 mg Inhalation once Route: Inhalation; la4 23:18 Drug: Ipratropium Inhalation Aerosol 0.5 mg Inhalation once Route: Inhalation; la4 Disposition: 08/30 01:09 Co-signature as Attending Physician, Rafa Bain MD I agree with the assessment sp4 and plan of care. I reviewed the patient's care provided by the Advanced Practice Provider and agree with the diagnosis and treatment plan. Disposition Summary: 08/30/23 00:57 Discharge Ordered Notes: Location: Home kb Condition: Stable kb Diagnosis - Acute upper respiratory infection, unspecified kb Followup: kb - With: Emergency Department - When: As needed - Reason: Worsening of condition Followup: kb - With: Private Physician - When: 2 - 3 days - Reason: Recheck today's complaints, Continuance of care, Re-evaluation by your physician Discharge Instructions: - Discharge Summary Sheet kb - Upper Respiratory Infection, Adult, [id number] kb Forms: - Medication Reconciliation Form kb - Thank You Letter kb - Antibiotic Education kb - Prescription Opioid Use kb - Patient Portal Instructions kb - Leadership Thank You Letter kb - Work release form la4 Prescriptions: - albuterol sulfate 90 mcg/actuation Inhalation HFA Aerosol Inhaler - inhale 2 puff INHALATION route every 6 hours As needed; 1 unit; Refills: 0, kb Product Selection Permitted - Tessalon Perles 100 mg Oral Capsule - take 1 capsule ORAL route every 8 hours As needed; 15 capsule; Refills: 0, kb Product Selection Permitted Signatures: Dispatcher [employer] EDMS Terri Hawley, MENAGERIE SUPERINTENDENT-C MENAGERIE SUPERINTENDENT-Rafa Menon MD MD sp4 Azalia Sullivan, RN RN cm10 Dimas Moreno RN RN la4
--- NOTE | 2023-08-30 00:57 | ER ---
Nurse's Notes [facility] Name: Nenita Causey Age: 27 yrs Sex: Female : 1995 Arrival Date: 08/29/2023 Time: 22:44 Bed 16 Private MD: Diagnosis: Acute upper respiratory infection, unspecified Presentation: 08/29 22:56 Chief complaint: Patient states: Cough, congestion, body aches and fever onset 6 days cm10 ago. Coronavirus screen: Vaccine status: Patient reports being unvaccinated. Client denies travel out of the [place] in the last 14 days. Ebola Screen: Patient denies travel to an Ebola-affected area in the 21 days before illness onset. No symptoms or risks identified at this time. Resp Distress? No respiratory distress is noted at this time. Initial Sepsis Screen: Does the patient meet any 2 criteria? No. Patient's initial sepsis screen is negative. Does the patient have a suspected source of infection? No. Patient's initial sepsis screen is negative. Risk Assessment: Do you want to hurt yourself or someone else? Patient reports no desire to harm self or others. Onset of symptoms was August 29, 2023. 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 - Social history:: Smoking status: Patient denies any tobacco usage or history of. Screenin:23 [facility] ED Fall Risk Assessment (Adult) History of falling in the last 3 months, la4 including since admission No falls in past 3 months (0 pts) Confusion or Disorientation No (0 pts) Intoxicated or Sedated No (0 pts) Impaired Gait No (0 pts) Mobility Assist Device Used No (0 pt) Altered Elimination No (0 pt) Score/Fall Risk Level 0 - 2 = Low Risk Maintained a safe environment, Provided non-skid footwear. Abuse screen: Denies threats or abuse. Denies injuries from another. Nutritional screening: No deficits noted. Tuberculosis screening: No symptoms or risk factors identified. Assessment: 23:23 General: Appears uncomfortable, Behavior is calm, cooperative, appropriate for age. la4 Pain: Denies pain. Neuro: Dominguez Agitation-Sedation Scale (RASS): 0 - Alert and Calm Level of Consciousness is awake, alert, obeys commands, Oriented to person, place, time, situation. Cardiovascular: No deficits noted. Heart tones S1 S2 Capillary refill < 3 seconds is brisk fingers Patient's skin is warm and dry. Pulses are all present. Respiratory: Airway is patent Trachea midline Respiratory effort is even, unlabored, Respiratory pattern is regular, symmetrical, Sputum is thick, yellow Breath sounds with wheezes bilaterally. in mediastinum, left posterior lower lobe, right posterior middle lobe and right posterior lower lobe Onset: The symptoms/episode began/occurred symptoms began 6 days ago. Vital Signs: 22:56 Pulse 89; Resp 18; Temp 97.1; Pulse Ox 97% ; Weight 127.01 kg; Height 5 ft. 3 in. ; cm10 Pain 4/10; 22:59 BP 136 / 80; cm10 23:23 BP 153 / 103; Pulse 89; Resp 22; Pulse Ox 99% ; la4 12/ 01:28 BP 149 / 87; Pulse 88; Resp 18; Temp 98.7(O); Pulse Ox 96% on R/A; la4 12 22:56 Body Mass Index 49.60 (127.01 kg, 160.02 cm) cm10 12/05 22:56 Pain Scale: Adult cm10 [place] Coma Score: 12 23:23 Eye Response: spontaneous(4). Motor Response: obeys commands(6). Verbal Response: la4 oriented(5). Total: 15. 12 01:28 Eye Response: spontaneous(4). Motor Response: obeys commands(6). Verbal Response: la4 oriented(5). Total: 15. ED Course: 08/29 22:52 Patient arrived in ED. gm2 22:53 [facility]C [facility]. kb 22:53 Rafa Bain MD is Attending Physician. kb 22:58 Triage completed. cm10 22:59 Arm band placed on Patient placed in an exam room, on a stretcher. cm10 23:05 Dimas Moreno RN is Primary Nurse. la4 23:18 Strep Sent. la4 23:18 COVID-19 SARS RT PCR Sent. la4 23:18 Flu Sent. la4 23:23 Placed in gown. Bed in low position. Call light in reach. Side rails up X2. Provided la4 Education on: plan of care. Pulse ox on. NIBP on. 23:23 No provider procedures requiring assistance completed. la4 08/30 01:28 Patient did not have IV access during this emergency room visit. la4 Administered Medications: 08/29 23:18 Drug: Albuterol Inhalation 2.5 mg Inhalation once Route: Inhalation; la4 23:18 Drug: Ipratropium Inhalation Aerosol 0.5 mg Inhalation once Route: Inhalation; la4 Medication: 23:23 VIS not applicable for this client. la4 Outcome: 08/30 00:57 Discharge ordered by . kb 01:28 Discharged to home ambulatory, with significant other, la4 01:28 Condition: stable 01:28 Discharge instructions given to patient, Instructed on discharge instructions, follow up and referral plans. Demonstrated understanding of instructions, follow-up care, medications, Prescriptions given X 2, 02:03 Patient left the ED. la4 Signatures: Terri Hawley, BALJINDERC Azalia Thompson, RN RN cm10 Mirian Bourne 2 Dimas Moreno, RN RN la4
[2023-08-30 12:14] VITALS: BP 149/87; TEMP 98.7; O2SAT 96
== END 2023-08-30 02:03 | disposition home or self-care (01) ==
LOC: ER 22:44
DX: J06.9 Acute upper respiratory infection, unspecified (principal); Z11.52 Encounter for screening for COVID-19; Z88.0 Allergy status to penicillin; Z88.1 Allergy status to other antibiotic agents
CPT/HCPCS: 87070; 87081; 87635; 87804 ×2; 99284; J7613; J7644